=== PATIENT | male | born 1970 | race Caucasian/White ===

== ENCOUNTER 2017-02-05 17:54 | Emergency (ER) | payer SELFPAY ==
[2017-02-05] MEDS ORDERED: KETOROLAC TROMETHAMINE 60 MG/2 ML SDV IM ONE (19:16)
--- NOTE | 2017-02-05 19:20 | ER Document Report ---
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 About 5 days ago while he was lifting something heavy, he felt pain to his lower back and has been having muscle spasms to the right side since then. Denies loss of control of bowels or bladder. Pain does not radiate down the legs. Associated Symptoms: None Exacerbated by: Movement Relieved by: Denies Similar symptoms previously: No Recently seen / treated by doctor: No - ROS ROS below otherwise negative: Yes Systems Reviewed and Negative: Yes All other systems reviewed and negative - CONSTITUTIONAL Constitutional: DENIES: Fever - EENT EENT: DENIES: Congestion - NEURO Neurology: DENIES: Headache - CARDIOVASCULAR Cardiovascular: DENIES: Chest pain - RESPIRATORY Respiratory: DENIES: Trouble Breathing - GASTROINTESTINAL Gastrointestinal: DENIES: Abdominal Pain - URINARY Urinary: DENIES: Dysuria - MUSCULOSKELETAL Musculoskeletal: REPORTS: Back Pain - DERM Skin Color: Normal, [place] Past Medical History - General Information source: Patient - Social History Smoking Status: Current Every Day Smoker Cigarette use (# per day): Yes Frequency of alcohol use: Occasional Drug Abuse: None Lives with: Family Family History: Reviewed & Not Pertinent Patient has suicidal ideation: No Patient has homicidal ideation: No - Medical History Medical History: Negative Surgical Hx: Negative Vertical Provider Document - CONSTITUTIONAL Agree With Documented VS: Yes Exam Limitations: No Limitations General Appearance: WD/WN, No Apparent Distress - INFECTION CONTROL TRAVEL OUTSIDE OF THE [place] IN LAST 30 DAYS: No - HEENT HEENT: Atraumatic, Normocephalic - NECK Neck: Normal Inspection, Supple - RESPIRATORY Respiratory: Breath Sounds Normal, No Respiratory Distress O2 Sat by Pulse Oximetry: 97 - CARDIOVASCULAR Cardiovascular: Regular Rate, Regular Rhythm - GI/ABDOMEN Gastrointestinal: Abdomen Soft, Abdomen Non-Tender, Normal Bowel Sounds - BACK Notes: Right mid to lower back muscles tight. Patient feels pulling sensation to back with leg raises. No saddle anesthesia. Pain reproduced with range of motion - NEURO Level of Consciousness: Awake, Alert, Appropriate - DERM Integumentary: Warm, Dry Course - Vital Signs Vital signs: Temp Pulse Resp BP Pulse Ox 98.3 F 69 16 135/88 H 97 10/13/17 18:15 02/05/17 18:15 02/05/17 18:15 02/05/17 18:15 02/05/17 18:15 Discharge - Discharge Clinical Impression: Back muscle spasm Condition: Good Disposition: HOME, SELF-CARE Instructions: Muscle Strain ([facility]), Warm Packs ([facility]), Ice Packs ([facility]), Oral Narcotic Medication ([facility]) Additional Instructions: Muscle relaxers as prescribed Ibuprofen 3 times a day as needed for pain Ice or heat packs to the back No heavy lifting for 1 week Follow-up with your doctor next week if no improvement, earlier if worsens. Return as needed Prescriptions: Cyclobenzaprine HCl [Flexeril 10 mg Tablet] 10 mg PO TIDP PRN #15 tab PRN Reason: Hydrocodone/Acetaminophen [[place] 5-325 mg Tablet] 1 tab PO PRN PRN #10 tablet PRN Reason: Ibuprofen 800 mg PO TID #20 tablet Forms: Return to Work
--- NOTE | 2017-02-05 19:42 | RADIOLOGY REPORT (SQ) ---
EXAM DESCRIPTION: L SPINE WHOLE COMPLETED DATE/TIME: 02/05/2017 7:34 pm REASON FOR STUDY: injury COMPARISON: None. NUMBER OF VIEWS: Three views. TECHNIQUE: AP, lateral and sacral radiographic images acquired of the lumbar spine. LIMITATIONS: None. FINDINGS: MINERALIZATION: Normal. SEGMENTATION: Normal. No transitional anatomy. ALIGNMENT: Normal. VERTEBRAE: Maintained height. No fracture or worrisome bone lesion. DISCS: Preserved height. No significant osteophytes or end plate irregularity. POSTERIOR ELEMENTS: Pedicles and facets are intact. No pars defect or posterior arch defects. HARDWARE: None in the spine. PARASPINAL SOFT TISSUES: Normal. PELVIS: Intact as visualized. No fractures or worrisome bone lesions. SI joints intact. OTHER: No other significant finding. IMPRESSION: NORMAL 3 VIEW LUMBAR SPINE. TECHNICAL DOCUMENTATION: JOB ID: [id number] [employer]- All Rights Reserved
[2017-02-05 20:24] VITALS: BP 119/89
== END 2017-02-05 20:20 | disposition home or self-care (01) ==
LOC: ER 17:54
DX: M62.830 Muscle spasm of back (principal); F17.210 Nicotine dependence, cigarettes, uncomplicated
CPT/HCPCS: 99283; 96372; 72110; J1885

== ENCOUNTER → 2018-02-08 | Outpatient (CLI) | payer MEDICAID ==
--- NOTE | 2018-02-08 13:17 | RADIOLOGY REPORT (SQ) ---
EXAM DESCRIPTION: ELBOW RIGHT >2 VIEWS COMPLETED DATE/TIME: 02/08/2018 12:03 pm REASON FOR STUDY: POST-TRAUMATIC OSTEOARTHRITIS, RIGHT ELBOW M19.121 POST-TRAUMATIC OSTEOARTHRITIS, RIGHT ELBOW M54.9 DORSALGIA, UNSPECIFIED broken elbow 8 years ago COMPARISON: None. NUMBER OF VIEWS: Four views. TECHNIQUE: AP, lateral, and both oblique radiographic images acquired of the right elbow. LIMITATIONS: None. FINDINGS: MINERALIZATION: Normal. BONES: An old healed radial head fracture is present with minimal articular surface irregularity. No acute fracture or malalignment. JOINT: Large elbow effusion with displacement of the ventral and dorsal fat pads. SOFT TISSUES: No soft tissue swelling. No foreign body. OTHER: No other significant finding. IMPRESSION: Old healed radial head fracture with radial head articular surface irregularity No definite acute fracture Large elbow joint effusion without radiopaque loose bodies TECHNICAL DOCUMENTATION: JOB ID: [id number] [employer]- All Rights Reserved Reading location - IP/workstation name: [email or web address]
--- NOTE | 2018-02-08 13:24 | RADIOLOGY REPORT (SQ) ---
EXAM DESCRIPTION: LUMBAR SPINE COMPLETE COMPLETED DATE/TIME: 02/08/2018 12:03 pm REASON FOR STUDY: DORSALGIA, UNSPECIFIED M19.121 POST-TRAUMATIC OSTEOARTHRITIS, RIGHT ELBOW M54.9 DORSALGIA, UNSPECIFIED COMPARISON: 02/05/2017 NUMBER OF VIEWS: Five views including obliques. TECHNIQUE: AP, lateral, oblique, and sacral radiographic images acquired of the lumbar spine. LIMITATIONS: None. FINDINGS: MINERALIZATION: Normal. SEGMENTATION: Normal. No transitional anatomy. ALIGNMENT: Normal. VERTEBRAE: Maintained height. No fracture or worrisome bone lesion. DISCS: Preserved height. No significant osteophytes or end plate irregularity. POSTERIOR ELEMENTS: Pedicles and facets are intact. No pars defect or posterior arch defects. HARDWARE: None in the spine. PARASPINAL SOFT TISSUES: Normal. PELVIS: Intact as visualized. No fractures or worrisome bone lesions. SI joints intact. OTHER: No other significant finding. IMPRESSION: NORMAL 5 VIEW LUMBAR SPINE. TECHNICAL DOCUMENTATION: JOB ID: [id number] [employer]- All Rights Reserved Reading location - IP/workstation name: [email or web address]
== END ==
LOC: OD 11:45
PROVIDERS: ATTEND Family Medicine
DX: M19.121 Post-traumatic osteoarthritis, right elbow (principal); M54.9 Dorsalgia, unspecified
CPT/HCPCS: 72110

== ENCOUNTER → 2018-06-03 | Outpatient (CLI) | payer MEDICAID ==
--- NOTE | 2018-06-03 16:03 | RADIOLOGY REPORT (SQ) ---
EXAM DESCRIPTION: FOOT BILATERAL 3 VIEWS COMPLETED DATE/TIME: 06/03/2018 2:47 pm REASON FOR STUDY: BILAT FOOT PAIN M79.672 PAIN IN LEFT FOOT M79.671 PAIN IN RIGHT FOOT COMPARISON: None. NUMBER OF VIEWS: Three views. TECHNIQUE: AP, lateral and oblique radiographic images acquired of the right and left foot. LIMITATIONS: None. FINDINGS: MINERALIZATION: Normal. BONES: No acute fracture or dislocation. No worrisome bone lesions. JOINTS: Bilateral hallux valgus deformities are present. There is mild soft tissue swelling over the medial aspect of the 1st metatarsophalangeal joints bilaterally. No aggressive bony erosions worris ome for gout. SOFT TISSUES: No soft tissue swelling. No foreign body. OTHER: No other significant finding. IMPRESSION: Bilateral hallux valgus deformities TECHNICAL DOCUMENTATION: JOB ID: [id number] [employer]- All Rights Reserved Reading location - IP/workstation name: [email or web address]
== END ==
LOC: OD 14:28
PROVIDERS: ATTEND Family Medicine
DX: M79.672 Pain in left foot (principal); M79.671 Pain in right foot; M20.12 Hallux valgus (acquired), left foot; M20.11 Hallux valgus (acquired), right foot

== ENCOUNTER 2018-07-20 08:29 | Day surgery (SDC) | payer MEDICAID ==
[2018-07-20] MEDS ORDERED: MIDAZOLAM 2 MG/2 ML INJ ONE (09:08)
[2018-07-20] MEDS ORDERED: PROPOFOL INJ 200 MG/20 ML VIAL IV ONE (09:08)
[2018-07-20] MEDS ORDERED: FENTANYL CITRATE INJ/PF 100 MCG/2 ML AMPUL ONE (09:08)
[2018-07-20] MEDS ORDERED: ACETAMINOPHEN 1,000 MG/100 ML RTUPB IV ONE (09:08)
[2018-07-20] MEDS ORDERED: BUPIVACAINE INJ/PF LIPOSOME/PF 266 MG/20 ML SDV ONE (09:10)
[2018-07-20] MEDS ORDERED: CEFAZOLIN 1 GM/D5W RTU 1 GM/50 ML RTUPB IV ONE (09:15)
[2018-07-20] MEDS: LIDOCAINE 2% INJ (20 MG/ML) 20 ML MDV ONE ×2 (09:45→10:05)
[2018-07-20] MEDS: BUPIVACAINE HCL 0.5 % INJ/PF 30 ML SDV ONE ×2 (09:45→10:05)
[2018-07-20] MEDS: BACITRACIN INJ 50,000 UNIT VIAL ONE ×2 (10:30)
[2018-07-20] MEDS: NORMAL SALINE INJ/PF 0.9% 10 ML SDV ONE ×2 (10:30)
[2018-07-20] MEDS: POLYMYXIN B SULFATE INJ 500000 UNIT VIAL ONE ×2 (10:30)
--- NOTE | 2018-07-20 11:49 | SURGICARE OPERATIVE REPORT E ---
[facility], [place] Operative Report NAME: LISA BATRES AGE: 48Y DATE OF SURGERY: 07/20/2018 ROOM: PREOPERATIVE DIAGNOSIS: Hallux abductovalgus of the right foot. POSTOPERATIVE DIAGNOSIS: Hallux abductovalgus of the right foot. PROCEDURE PERFORMED: Benjie bunionectomy with internal screw fixation of the right foot. SURGEON: ROLANDO SANTOYO DPM COMPRESSOR STATION ENGINEER CHIEF: Kandace Robison DPM PROCEDURE: On 07/20/2018 the patient was admitted to [facility], [place] where he complained of a painful right foot. The patient was taken to the operating room and following induction of IV sedation and regional block anesthesia the patient's right foot and leg were prepped and draped in the usual sterile manner. A tourniquet was placed on the proximal ankle malleoli and Esmarch was applied. Tourniquet was inflated to a level of 250 mmHg for hemostasis. The Esmarch was removed. Sterile draping was completed and the following procedure performed. Attention was directed to the dorsal aspect of the patient's first metatarsophalangeal joint where a 5 cm curvilinear incision was placed medially along the extensor tendon. It was deepened through the subcutaneous tissue and superficial fascia. All bleeding vessels were clamped, ligated, and Bovied as necessary for hemostasis. The incision was further carried down to the capsular periosteal structures which were sharply incised in a similar fashion as the original skin incision, retracted medially and laterally for preservation. The long extensor tendon was identified, retracted with the capsular structures laterally for preservation. This brought into view the hypertrophied medial aspect of the patient's first metatarsal head. The articular surfaces were examined and noted to be free of any defects. At that time utilizing a sagittal saw the hypertrophied medial portion of the first metatarsal was osteotomized in a dorsal plantar fashion, removing approximately a 5 mm wedge of bone. At that time an Benjie-type osteotomy was then performed, a Chevron-type osteotomy with the apex being distal, and it was carried from medial to lateral. The head of the first metatarsal was freed from its osseous attachments, transposed to a more lateral position for reduction of intermetatarsal angle and realignment of the plantar sesamoids, temporarily fixated with a K wire. Fluoroscopic studies were obtained. Correction was noted to be excellent at this time. At this time it was determined that a 3.0 x 24 mm cannulated screw was the proper size. It was then inserted from dorsal distal to plantar proximal. Further fluoroscopic studies were obtained to verify placement of this screw. It was noted to be through the plantar cortex as desired, and the osteotomy was noted to be in good alignment, stably fixated. The K wire was removed. First metatarsophalangeal joint was placed through range of motion to be excellent without binding. Redundancy bone on the medial aspect of the first metatarsal shaft was then osteotomized flush with the shaft. All sharp osseous edges were rasped smooth. The area was flushed with copious amounts of sterile antibiotic solution. The screw was further tightened for any looseness during the rasping procedure. At that time bone wax was applied to the exposed medullary surface and the capsular periosteal structure was coapted and maintained with simple suture of 3-0 Vicryl. The subcutaneous tissue was coapted and maintained with simple suture of 4-0 Vicryl. At that time Exparel was injected subcutaneously in the periwound area. At that time the skin incision was coapted and maintained with running subcuticular suture of 5-0 Vicryl. Steri-Strips were applied. Sterile dressing consisting of Jeremias silk, 4 x 4's, Hudson, Kerlix, and Coflex was applied to the patient's right foot. Tourniquet was rapidly deflated. Capillary filling time was noted to be instantaneous to all digits. The patient appeared to tolerate the surgery and anesthesia well and was then taken to the recovery room for further monitoring by Anesthesia Department. DICTATING PHYSICIAN: ROLANDO SANTOYO DPM [id number] PHY#: [id number] ID: [id number] JOB#: [id number] ACCT: [id number] cc:ROLANDO SANTOYO DPM > MTDD
--- NOTE | 2018-07-20 12:34 | RADIOLOGY REPORT (SQ) ---
EXAM DESCRIPTION: NO CHG FLUORO; FOOT RIGHT 2 VIEWS COMPLETED DATE/TIME: 07/20/2018 11:21 am REASON FOR STUDY: BUNIONECTOMY RIGHT COMPARISON: None. FLUOROSCOPY TIME: 0.23 seconds 2 Images saved to PACS LIMITATIONS: None. PROCEDURE: Bunionectomy. FINDINGS: Images show osteotomy changes in the distal 1st metatarsal. A cannulated screw is present . IMPRESSION: Bunionectomy. Refer to operative note for further information. COMMENT: PQRS 6045F: Fluoroscopy time of the procedure is documented in the report. TECHNICAL DOCUMENTATION: JOB ID: [id number] [employer]- All Rights Reserved Reading location - IP/workstation name: [email or web address]
--- NOTE | 2018-07-20 12:34 | RADIOLOGY REPORT (SQ) ---
EXAM DESCRIPTION: NO CHG FLUORO; FOOT RIGHT 2 VIEWS COMPLETED DATE/TIME: 07/20/2018 11:21 am REASON FOR STUDY: BUNIONECTOMY RIGHT COMPARISON: None. FLUOROSCOPY TIME: 0.23 seconds 2 Images saved to PACS LIMITATIONS: None. PROCEDURE: Bunionectomy. FINDINGS: Images show osteotomy changes in the distal 1st metatarsal. A cannulated screw is present . IMPRESSION: Bunionectomy. Refer to operative note for further information. COMMENT: PQRS 6045F: Fluoroscopy time of the procedure is documented in the report. TECHNICAL DOCUMENTATION: JOB ID: [id number] [employer]- All Rights Reserved Reading location - IP/workstation name: [email or web address]
== END 2018-07-20 11:52 | disposition home or self-care (01) ==
LOC: SC 08:29
PROVIDERS: ATTEND Preventive Medicine Undersea and Hyperbaric Medicine
DX: M20.11 Hallux valgus (acquired), right foot (principal); F17.210 Nicotine dependence, cigarettes, uncomplicated
CPT/HCPCS: 28296; 73620; C1769; C1713; J2250; J3490 ×5; J0690; J3010; J2704; J0131; C9290; 01480

== ENCOUNTER → 2018-10-26 | Outpatient (CLI) | payer MEDICAID | LOC: LAB 17:00 | PROVIDERS: ATTEND Nurse Practitioner Acute Care | DX: J02.9 Acute pharyngitis, unspecified (principal) ==